=== PATIENT | male | born 2000 | race Caucasian/White ===

== ENCOUNTER 2019-02-25 05:39 | Emergency (ER) | payer OTHER ==
[~2019-02-25] VITALS: Ht 177.8 cm; Wt 72.6 kg
[2019-02-25 05:45] VITALS: BP 129/74
[2019-02-25 06:10] VITALS: BP 126/71
== END 2019-02-25 06:10 | disposition home or self-care (01) ==
LOC: EEVIPCON 05:39 → MED 05:39
DX: F41.9 Anxiety disorder, unspecified (principal)
CPT/HCPCS: 99283